=== PATIENT | female | born 1950 | race Caucasian/White ===

== ENCOUNTER 2025-09-11 17:30 | Emergency (ER) | payer MEDICARE, BC, SELFPAY ==
[2025-09-11 17:34] VITALS: BP 139/75
--- NOTE | 2025-09-11 19:52 | ED.GENMED ---
History of Present Illness
General
Chief Complaint: Skin Problem
Source: patient
Exam Limitations: none
Time Seen by Provider: 09/11/25 19:40
History of Present Illness
History of Present Illness:
75yoF with history of atrial fibrillation on Coumadin, hypertension, hyperlipidemia presenting for evaluation of left fifth toe redness. She had her nails cut by her convertible power shovel operator on 09/01 and also had some corns removed. She developed some
discomfort and redness to the left toe shortly afterwards which has been persistent. She is from [facility] and is in the area visiting her family. She spoke with her physician virtually who told her to go to the ED for evaluation. The redness
has not worsened or progressed. She is otherwise feeling well and denies fevers, chills, body aches. No prior history of peripheral artery disease or diabetes.
Phy Exam
General Physical Exam
General Presentation: well appearing and no apparent distress
General age: appears stated age
General Skin: warm and dry
General Habitus: normal and elderly
General Mental: alert
ENT Exam
ENT Exam: normocephalic
Cardiovascular Exam
Cardiovascular Exam: normal peripheral pulses (2+ L DP pulse)
Pulmonary Exam
Pulmonary Exam: no respiratory distress
Neurological Exam
Neurological Exam: alert
[place] Coma Scale
Eye Opening: Spontaneous
Verbal Response: Oriented
Motor Response: Obeys Commands
GCS Total Score: 15
Skin Exam
Skin Exam: warm/dry and other (Erythema/warmth localized to the L 5th toe. Small wound noted to the lateral toe without purulence. No paronychia. No pain out of proportion or crepitus.No red streaking proximally. )
Psychiatric Exam
Psychiatric Exam: normal mood/affect
Sepsis
Sepsis Screening
Sepsis Assessment: Sepsis Ruled Out
Sepsis Screen
Sepsis Screen: Sepsis Ruled Out
Date: 09/11/25
Time: 22:43
Course
Orders/Labs/Results
Orders:
Orders
09/11/25 19:54
Cephalexin Monohydrate [Keflex] 500 mg PO NOW STA
Vital Signs
Initial and Last Documented VS:
Initial Vital Signs
Temp Pulse Resp BP Pulse Ox
98 F 73 20 139/75 97
09/11/25 17:34 09/11/25 17:34 09/11/25 17:34 09/11/25 17:34 09/11/25 17:34
Last Documented Vital Signs
Temp Pulse Resp BP Pulse Ox
98 F 73 20 139/75 97
09/11/25 17:34 09/11/25 17:34 09/11/25 17:34 09/11/25 17:34 09/11/25 19:54
MDM/Problems Addressed
Differential Diagnosis Includes:
75yoF here with L 5th toe redness since having her toenails cut by her convertible power shovel operator 10 days ago. No f/c or other systemic symptoms. VSS. Patient well appearing. There is erythema localized to the toe on exam. No clinical evidence of paronychia noted.
LLE is neurovascularly intact.
No hx of diabetes/PAD and very low clinical suspicion for osteomyelitis. Will start patient on a course of Keflex. She was advised to f/u with her convertible power shovel operator and return to the ED with worsening symptoms. Patient in agreement with plan and was
discharged in stable condition.
*Pulse Oximetry
SaO2: 97
Oxygen Mode of Delivery: Room air
Patient hypoxic: no
*Critical Care Note
Total Time (30-74mins, 75-104mins- exclusive of procedures): Not Applicable
ED Attending Note
-
Portions of this chart may have been created with voice recognition software.� Occasional wrong word or��sound alike� substitutions may have occurred due to the inherent limitations of voice recognition software.
Discharge Plan
Departure
Patient Disposition: Home (Routine Discharge)
Date of Disposition: 09/11/25
Time of Disposition: 19:56
Patient with high blood pressure during this ER visit?: No
Discharge Problem:
Cellulitis of fifth toe of left foot
Instructions: Cellulitis (Skin Infection), Adult (DC)
Prescriptions:
New
cephalexin 500 mg capsule
500 mg PO QID 7 Days Qty: 27 0RF
Activity Restrictions/Additional Instructions:
Take antibiotics as prescribed. You should monitor your INR closely while on antibiotics.
Please follow-up with your convertible power shovel operator for recheck. Return to the ER with any worsening symptoms including spreading redness, fevers, or chills.
Interventions
Interventions:
*General Assessment Last Done: 09/11/25 17:34
*Neglect/Abuse Screening Last Done: 09/11/25 17:34
*Risk Screen - Suicide (C-SSRS) Last Done: 09/11/25 17:34
*Nursing Disposition Last Done: 09/11/25 20:17
ED-Skin Assessment Last Done: 09/11/25 20:17
Discharge Date and Time
Discharge Date/Time: 09/11/25 20:18
Print Language: [place]
[2025-09-11] MEDS: KEFLEX 500 MG PO (20:05)
== END 2025-09-11 20:18 | disposition home or self-care (01) ==
LOC: EMR 17:30
PROVIDERS: EMERGENCY PHYSICIAN Emergency Medicine
DX: L03.032 Cellulitis of left toe (principal); S91.105A Unspecified open wound of left lesser toe(s) without damage to nail, initial encounter; X58.XXXA Exposure to other specified factors, initial encounter; I48.91 Unspecified atrial fibrillation; I10 Essential (primary) hypertension; E78.5 Hyperlipidemia, unspecified; Z79.01 Long term (current) use of anticoagulants; Z91.018 Allergy to other foods
CPT/HCPCS: 99283